=== PATIENT | female | born 2000 | race Two or more races ===

== ENCOUNTER 2024-05-07 20:09 | Emergency (ER) | payer MEDICAID, SELFPAY ==
[2024-05-07 20:10] VITALS: BMI 24.7
[2024-05-07 20:19] VITALS: BP 115/72; PULSE 98; RESP 20; TEMP 36.9; O2SAT 98
--- NOTE | 2024-05-07 20:30 | PD.EDDENTL ---
ED Dental RME/HPI General Chief complaint: Dental/Oral/Throat Stated complaint: sore throat headache Time Seen by Provider: 05/07/24 20:26 Arrival date/time: 05/07/24 20:09 23 year old female present to emergency room with c/o of sore throat and headache for 2 days LOCATION: posterior oral pharynx SEVERITY: Symptoms are described as being severe with limitations on activities of daily living QUALITY: Symptoms are described as being dull or achy CONTEXT: The patient is unable to identify any inciting events. DURATION/TIMING: The symptoms started approximately 2 day ago and have been constant this then. ASSOCIATED SYMPTOMS: sore throat, headache MODIFYING FACTORS: worse with swallowing PERTINENT ROS: denies any food or liquids getting stuck, denies any generalized weakness, denies any trauma, no chest pain, no abdominal pain, no rashes, no joint swelling REVIEW OF SYSTEMS: See History of Present Illness - with the exception of those mentioned in the history of present illness, all other systems reviewed and reported as negative GENERAL: In general the patient is awake, interactive, in an emergency department gurney. HEAD/EYES/EARS/NOSE/THROAT: normo-cephalic, atraumatic, mucus membranes are moist, anicteric, palpebral conjunctiva is pink, trachea is midline. CARDIOVASCULAR: regular rate and regular rhythm, no murmurs, heart sounds are not distant, strong pulses in all four extremities that are equal and symmetric bilateral upper and lower extremities, normal capillary refill. CHEST/PULMONARY: normal chest rise and fall, good air movement, clear to auscultation bilaterally, normal inspiratory to expiratory ratios without evidence of respiratory distress. NECK: No midline/Paraspinal tenderness, no step off ROM/Strenght intact No Kernig and bruzinski sign. No trauma ABDOMEN: soft, not tender, no masses appreciated BACK: normal range of motion without pain. NEUROLOGICAL: cranio-facial features are symmetric, moves all four extremities equally without obvious limitations or weakness. EXTREMITY: no tenderness to palpation over the long bones or large joints of the bilateral upper and lower extremities, no joint swelling, no joint erythema, no signs of trauma, no unilateral leg swelling and no peripheral edema. SKIN: warm, dry, well-perfused, no jaundice, no rash, no telangiectasias or petechia. PSYCH: calm, cooperative, no evidence of psychosis or agitation Related Data Home Medications ?Medication ?Instructions ?Recorded ?Confirmed levetiracetam 500 mg tablet 250 mg PO Q12H 04/13/21 06/06/23 prenat.vits,morelia,[id number] 1 tab PO QDAY 06/06/23 06/06/23 Allergies Allergy/AdvReac Type Severity Reaction Status Date / Time No Known Allergies Allergy Verified 05/07/24 20:13 Course Quality Measures none Orders Category Date Time Status Bedside COVID-19 Antigen Test NOW Care 05/07/24 20:28 Completed Bedside Influenza A&B Antigen Test NOW Care 05/07/24 20:26 Completed Strep A Rapid Stat Lab 05/07/24 20:32 Completed Acetaminophen Tab [Tylenol ES Tab] Med 05/07/24 20:30 Discontinued 1,000 mg PO X1 ONE Vital Signs Vital signs: Vital Signs Temperature 98.5 F 05/07/24 20:19 Pulse Rate 98 05/07/24 20:19 Respiratory Rate 20 05/07/24 20:19 Blood Pressure 115/72 05/07/24 20:19 Pulse Oximetry (%) 98 05/07/24 20:19 Oxygen Delivery Method Room Air 05/07/24 20:19 Dental / Oral Patient data External records reviewed:: [facility] previous records Clinical information provided by:: patient Social determinants that could affect healthcare access:: none Patient has the following chronic illnesses:: n/a How is presenting disease/condition affected by chronic disease/condition?: no chronic disease Evaluation data The following diagnostics were reviewed and interpreted by me:: lab results and radiology exam(s) Lab and/or radiology exams considered but not ordered:: n/a Interpretation Summary: strep, covid/flu negative Medications / Prescriptions Medications or Prescriptions considered but not ordered:: n/a Medication administrations:: Medication Administration History Discontinued Medications Acetaminophen (Acetaminophen 500 Mg Tablet) 1,000 mg PO X1 ONE Stop: 05/07/24 20:31 Last Admin: 05/07/24 20:38 Dose: 1,000 mg Documented By: JNL as stated above Consultations Consultation(s) initiated? (list below): No Diagnosis Most likely diagnosis given after review of the tests above:: URI Admission Indicated Admission indicated?: not indicated Admission Request Was there a request for admission?: No Disposition Plan Disposition Plan: Discharge Discharge Attestation Discharge Attestation: The patient and all family members were given an opportunity to ask questions and understood the discharge instructions. Discharge instructions specifically effects, indications for sooner follow up or return to the emergency department, and the expected course of current diagnosis. Patient condition: Stable Discharge Plan Plan Patient Disposition: HOME (Self Care) Health Concerns: Follow with PMD as directed Take tylenol or motrin as need Return to ED if sx worsen Prescriptions/Referrals Prescriptions/Med Rec: No Action levetiracetam 500 mg tablet 250 mg PO Q12H Vitamin Tablet 1 tab PO QDAY Referrals: No Primary/Family,Physician [Primary Care Provider] - In 1 week Problem List Clinical Impression: URI (upper respiratory infection) Patient/Caregiver Discharge Instructions Education Materials: ED URI, Viral, No Abx (Adult) Print Language: Swedish Stand Alone Forms: Summer Award Info., Patient Portal Info Letter
[2024-05-07] MEDS: ACETAMINOPHEN 500 MG TABLET 1000 MG PO (20:38)
[2024-05-07 21:19] LABS: Strep A Rapid Negative (Negative)
== END 2024-05-07 23:54 | disposition home or self-care (01) ==
PROVIDERS: Physician Assistant; Emergency Provider Emergency Medicine
DX: J06.9 Acute upper respiratory infection, unspecified (principal)
CPT/HCPCS: 87400; 87651; 87811; 99283; A9270